=== PATIENT | male | born 1955 | race Caucasian/White ===

== ENCOUNTER → 2019-06-20 09:11 | Outpatient (CLI) | payer MEDICARE, OTHER, SELFPAY ==
--- NOTE | 2019-06-20 | DI.CT.S_ITS ---
PROCEDURE: CT UE LT WO CON INDICATIONS: Primary osteoarthritis, left shoulder TECHNIQUE: Noncontrast 1-1.5 mm thick sections acquired from the acromioclavicular joint to the inferior scapula, with coronal and sagittal reformatting. COMPARISON: [facility] [place], CR, XR SHOULDER 2+ VIEWS LEFT, 01/02/2019, 8:54. [facility], MR, MR SHOULDER LEFT WITH/WITHOUT CONTRAST, 11/18/2018, 10:25. FINDINGS: Image quality: Excellent. Bones: Comparative studies, again noted is severe glenohumeral joint osteoarthritis with significant joint space narrowing, extensive subchondral sclerosis and cyst formation and prominent inferior osteophyte formation. Moderate acromioclavicular joint osteoarthritic changes also seen. Nonspecific intraosseous cyst formation and greater tuberosity of humeral head is seen near rotator cuff tendon insertion. No suspicious intraosseous lesion. No fracture or dislocation. Soft tissues: There is no significant joint effusion. No gross full-thickness rotator cuff tendon rupture. No abnormal soft tissue calcification is seen. IMPRESSION: 1. Moderate to severe glenohumeral joint osteoarthritis and moderate acromioclavicular joint osteoarthritis. 2. No significant joint effusion. No gross full-thickness rotator cuff tendon rupture. Dictated by: Vladimir Man M.D. on 06/20/2019 at 12:06 Approved by: Vladimir Man M.D. on 06/20/2019 at 12:08
== END ==
PROVIDERS: PCP Family Medicine; Visit Provider Orthopaedic Surgery
DX: M19.012 Primary osteoarthritis, left shoulder (principal)
CPT/HCPCS: 73200

== ENCOUNTER 2019-08-13 09:33 | Inpatient (IN) | payer MEDICARE, OTHER, SELFPAY ==
[2019-07-30 08:39] VITALS: BMI 26.6
[2019-08-13] VITALS (15 sets, daily range): BP systolic 83–145; BP diastolic 53–91; PULSE 60–78; RESP 14–18; TEMP 35.9–36.6; O2SAT 91–98; BMI 25.7
[2019-08-13] MEDS: LACTATED RINGERS 1,000 ML 42 ML IV ×2 (10:00→14:06)
[2019-08-13] MEDS: CELECOXIB 200 MG CAPSULE PO (10:05)
[2019-08-13] MEDS: MELOXICAM 7.5 MG TABLET 15 MG PO (10:05)
[2019-08-13] MEDS: PREGABALIN 75 MG CAPSULE PO (10:06)
[2019-08-13] MEDS: ACETAMINOPHEN 325 MG TABLET 975 MG PO ×2 (10:06→20:52)
--- NOTE | 2019-08-13 11:37 | P.OP_ITS ---
Operative Date/Time/Diagnoses Date of procedure: 08/13/19 Time of procedure: 14:40 Pre-op diagnosis: Left shoulder osteoarthritis Post-op diagnosis: same Procedure & Clinicians Procedure: Left total shoulder replacement Same procedure as scheduled: Yes Indications: The patient has had progressively worsening left shoulder pain with radiographic changes consistent with arthritis. Non-operative management has failed and the patient has requested total shoulder replacement. The risks, benefits and alternatives to surgery were discussed with the patient prior to proceeding. Risks discussed included, but were not limited to, failure to relieve pain, stiffness, infection, nerve damage, deep venous thrombosis, pulmonary embolism, stroke, coma, heart attack, permanent paralysis and , as well as the potential need for eventual revision of the prosthetic. Surgeon: Angel Catalan Lining Inserter: Colleen Briones Click Yes if Unassisted: No Anesthesia Type: General, Peripheral nerve block and Local Operative Notes Findings: Severe osteoarthritis with significant posterior erosion of the glenoid with posterior subluxation of the humeral head. Closure Type: primary Specimen(s): none sent Prosthetic devices, grafts, tissues, transplants, or devices: Implants used in this procedure were manufactured by the [employer] and included an Altivate short stem total shoulder system with a size 14 stem, a neutral 50 x 20 mm humeral head with a neutral neck and a 50 mm all polyethylene E plus pegged glenoid. Applied: drain(s) and implant(s) Estimated Blood Loss (mL): 150 Blood products transfused: none Procedure in detail: The patient was seen in the pre-operative area, where the patient identified the left shoulder as the operative site and this was marked with my initials. The patient received pre-operative antibiotics, underwent an interscalene block, and was taken to the operating room and placed on the operative table in the supine position. After satisfactory anesthesia, a full ?time out? was performed. The patient was repositioned in the ?beach chair? position using a dedicated positioner. All pressure points were well padded, and the knees were slightly bent to prevent tension on the sciatic nerves. The left arm was prepared from the fingers to the base of the neck with ChloroPrep in the usual fashion and draped through sterile drapes. An approximately 15 cm incision was created, starting at the clavicle above the coracoid process and extended towards the deltoid insertion. The deltopectoral interval was used to access the shoulder. The cephalic vein was taken medially. A self retaining retractor was placed. The upper centimeter of the pectoralis major tendon was released. The ?three sisters? were identified and cauterized. The axillary nerve was palpated and protected throughout the case. The biceps was released from its groove and tenodesed over the top of the pectoralis major tendon. The subscapularis was released from the lesser tuberosity with a subscapularis peel and tagged for later repair. The shoulder was dislocated and a cutting guide was used for the proximal humeral osteotomy in 30 degrees of retroversion. A starter Reamer was used followed by the cylindrical reamers. This continued in larger sizes in till cortical bite was achieved. Sequential broaching was then performed until a line to line fit with the Reamer occurred. A proximal humeral protector was then placed. We then removed the self-retaining retractor and placed retractors to access the glenoid. The subscapularis was released with a ?360 degree release? with care being taken to protect the axillary nerve with the inferior portion of this procedure. The remnant of labrum and biceps stump were removed. The appropriate size reamer was chosen by the preoperative computer planning. The custom made glenoid drill guide was placed and the guide pin inserted. The glenoid was appropriately reamed. The guide for the peripheral holes was used and the center hole enlarged. The trial glenoid was placed with good stability. We then cemented the final implant into place after irrigating the peg holes and drying them with thrombin-soaked Gelfoam. We returned our attention to the humerus, a trial humeral head was applied and a trial reduction performed. Stability was checked with 50% posterior translation with spontaneous reduction, 45? external rotation with the subscapularis held in the repaired position and 70? of internal rotation in the ?scarecrow position?. This was felt to be satisfactory and the appropriate implants were opened. Five holes were drilled along the humeral osteotomy and #2 Ethibond sutures placed for eventual subscapularis repair. The humeral prosthetic was impacted into the humerus. The humeral head was applied when the stem was still slightly proud and impacted to both seat the head and fully seat the stem. The joint was relocated one final time. The joint was irrigated and the subscapularis repaired to the previously placed sutures using Ned-Tomas sutures. The top of the subscapularis was closed to the leading edge of the supraspinatus with a figure of 8 #2 Ethibond to close the rotator interval. A deep drain was placed and brought out supero-laterally. The deltopectoral interval was closed with interrupted 0 Vicryl. The subcutaneous layer was closed with 3-0 Vicryl, and the skin with a running 3-0 V-Lock suture and SteriStrips. An Aquacel Ag dressing was applied, the patient?s arm was placed in a sling, and the patient was taken to recovery having tolerated the procedure well. Complications: none Post-operative Condition: stable Disposition: PACU Plan for aftercare: The patient will be maintained on a standard total shoulder replacement protocol with passive range of motion limited to 90 degrees forward flexion, 0 degrees external rotation at the side, 0 degrees abduction and internal rotation to the body. The patient will receive aspirin and sequential compression devices for DVT prophylaxis. The patient will be discharged home when safe for the home environment, likely tomorrow.
--- NOTE | 2019-08-13 11:37 | PM.PREOP ---
Pre-operative Note Interval Note History & Physical reviewed/Exam performed by Physician: Yes Changes to H&P: No
[2019-08-13] MEDS: MIDAZOLAM 2 MG/2 ML VIAL IV (12:00)
[2019-08-13] MEDS: fentaNYL 100 MCG/2 ML INJ 50 MCG IV (12:05)
--- NOTE | 2019-08-13 12:13 | SUR.PREOP ---
Block start time [1200] . Monitoring initiated and maintained throughout procedure. Oxygen and medications given per anesthesiologist instructions. Patient remained stable throughout procedure, no adverse reactions noted. Block end time [1210].
[2019-08-13] MEDS: CEFAZOLIN 2 GM/100 ML FROZ.PIGGY IV (12:26)
[2019-08-13] MEDS: BUPIVACAINE 0.5% W/ EPI (PF) 30 ML VIAL INJ (13:08)
[2019-08-13] MEDS: TRANEXAMIC ACID 1,000 MG VIAL 1000 MG INJ ×2 (13:09→14:19)
--- NOTE | 2019-08-13 13:16 | SUR.OPER ---
Beach chair with Schlein shoulder positioner. Lower body on padded OR bed. Head in foam padded head cradle, secured with straps. Non-operative arm secured <90 degrees abduction. Pillow under knees. Safety belt at thigh. Cloth tape over blanket over lower legs.
[2019-08-13] MEDS: THROMBIN (RECOMBINANT) 5,000 UNIT VIAL 5000 UNIT TOP (13:58)
--- NOTE | 2019-08-13 15:03 | DI.RAD.S_ITS ---
PROCEDURE: XR SHOULDER LT 1V INDICATIONS: post op total shoulder TECHNIQUE: Single views of the shoulder were acquired. COMPARISON: None. FINDINGS: Bones: No fractures or dislocations. No suspicious bony lesions. Visualized ribs appear intact. Expected postoperative alignment of left shoulder arthroplasty hardware. Soft tissues: Overlying postsurgical soft tissue changes. Surgical drain.. IMPRESSION: Expected postoperative appearance Dictated by: Eleuterio Adrian M.D. on 08/13/2019 at 15:47 Approved by: Eleuterio Adrian M.D. on 08/13/2019 at 15:48
--- NOTE | 2019-08-13 19:48 | PC.NURSE ---
Addendum entered by Sapna Goodson R.N. 08/13/19 21:14: Patient slept for 2 hours, VS remain stable, RA oxygen 96% Awoke to voice, oriented x 3 and to situation. IS teaching given, getting to 1600. Denies pain to LUE or hand, can move index & 3rd finger just slightly, still reports numbness to hand, arm & shoulder. Drsg CDI. Hemovac with 110 ml sero-sang drainage. Arm in protective sling. Holden ambulated to BR to void, needing only SBA. Back to bed, 1/2 sandwich & snacks given per his request, needing some set-up assist. Reports his dominant hand is his left. Using call button appropriately, instructed to call nurse if he starts feeling any pain- he agrees to this plan. Original Note: Post-op note: Holden brought from PACU at 1615, drowsy, oriented to situation. Denies pain to LUE or shoulder, reports shoulder, arm, hand and fingers are numb. Could slightly wiggle index finger upon last assessment, hand & arm are warm to the touch, radial pulse is strong, good cap refill. LUE in protective sling. Drsg and hemovac site are CDI, small amt of sero-sang in disc, disc compressed. IV to right hand infusing with no difficulty. Patient denies nausea & tolerating regular diet. Patient able to stand at bedside, denied dizziness, voiding 650 ml clear mohamud urine via urinal. Back to bed. Oriented to room, bed and nurse call button controls, at bedside. Fall precautions in place, patient instructed to call staff for any needs/concerns.
[2019-08-13] MEDS: ASPIRIN EC 81 MG TABLET PO (20:52)
[2019-08-13] MEDS: LACTATED RINGERS 1,000 ML 125 ML IV (20:53)
--- NOTE | 2019-08-13 23:52 | PC.NURSE ---
Addendum entered by Taty Looney R.N. 08/14/19 05:43: Slept most of night. States still some numbness in left forearm and tingling in fingers/hand but moving better. Currently pain is 2/10 but declines pain meds at this time. Original Note: Patient is alert and oriented. Breath sounds CTA with RA sat of 95%. HRR. Denies nausea. BT present and states he has passed flatus. Denies dysuria, frequency or urgency and is voiding per urinal. Able to move self in bed. Left arm is in sling. Aquacel dressing is CDI. Hemovac is compressed and intact. Numbness throughout left UE but is able to move fingers and slightly lift arm. Denies pain. Good radial pulse/cap refill. Wearing bilateral calf SCD's. Noted skin on feet very dry. Fall risk score is low.
[2019-08-14] MEDS: LACTATED RINGERS 1,000 ML 125 ML IV (01:08)
[2019-08-14 05:30] VITALS: BP 104/65; PULSE 68; RESP 18; TEMP 36.9; O2SAT 95
[2019-08-14 05:53] LABS: Hematocrit 35.6 % (41-53); Hemoglobin 12.3 g/dL (13.5-17.5); Mean Corpuscular HGB Conc 34.5 % (30-36); Mean Corpuscular Volume 89.8 fL (80-100); Platelet Count 185 X10^3/uL (150-400); Red Blood Cell Count 3.96 X10^6/uL (4.5-5.9); Red Cell Distribution Width 12.5 % (11.6-14.8); White Blood Cell Count 10.2 X10^3/uL (4.5-11.0)
[2019-08-14 07:40] VITALS: BP 117/73; PULSE 67; RESP 16; TEMP 37; O2SAT 97
--- NOTE | 2019-08-14 07:51 | PM.DS.1 ---
History of Present Illness History of Present Illness Date Patient Seen: 08/14/19 Time Patient Seen: 07:51 Chief complaint: 90096 Left Total Shoulder Arthroplasty Narrative: History and physical is contained in the chart in a previously completed note. Please refer to that note for this information. Discharge Providers Provider Date of admission: 08/13/19 09:33 Discharge Date: 08/14/19 Primary care physician: Ian Benjamin MD Consults: 08/13/19 17:14 Consult to Discharge Planning Routine Comment: Consult to Physical Therapy Evaluate & Treat Comment: Pendulums, PROM 90 FF, 0 ABD, 0 ER, IR to body Physician Instructions: Evaluate and Treat Discharge provider: Angel Catalan MD Summary Hospital Course Discharge Diagnosis: 1. Left shoulder osteoarthritis 2. Mild post hemorrhagic anemia Hospital Course: The patient was admitted to the hospital and taken directly to the operating room on August 13, 2019. Underwent a left total shoulder replacement without complication. On postoperative day 1 he was neurovascularly intact and had reasonable pain control. He was independent with ambulation and ready to go home. Status at Discharge Cognitive/behavioral status at discharge: oriented Functional status at discharge: independent ambulation Overall status at discharge: patient is progressing back to baseline Time Spent with Patient Time spent: Less than 30 minutes Exam Vital Signs (past 8 hours): - 08/14/19 05:30 Temperature 98.4 F Pulse Rate 68 Respiratory Rate 18 Blood Pressure 104/65 Pulse Oximetry 95 Oxygen Delivery Method Room Air Oxygen Flow Rate 0 Narrative Exam Narrative: The left shoulder wound is dressed with no drainage on the bandage. Light touch is intact in the radial, ulnar, median, muscular cutaneous and axillary nerve distribution. He can extend his thumb, abduct his thumb, abduct his fingers and can fire his biceps and deltoid. Objective Labs Result Diagrams: 08/14/19 05:35 Labs: Laboratory Results - last 24 hr 08/14/19 05:35 WBC 10.2 RBC 3.96 L Hgb 12.3 L Hct 35.6 L MCV 89.8 MCH 31.0 MCHC 34.5 RDW 12.5 Plt Count 185 Discharge Plan Discharge Plan Patient Disposition: Home Discharge orders & Medications Prescriptions: New acetaminophen 325 mg Tablet 975 mg PO TID 30 Days Qty: 270 RF: 0 aspirin 81 mg Tablet,Delayed Release (Dr/Ec) 81 mg PO BID 14 Days Qty: 28 RF: 0 oxycodone 5 mg Tablet 5 mg PO Q4HR Qty: 40 RF: 0 hydroxyzine pamoate 25 mg Capsule 25 mg PO Q4HR PRN (Reason: Spasms) Qty: 40 RF: 0 Continued IBUPROFEN (Ibuprofen) 400 - 600 mg PO PRN PRN (Reason: Pain) Qty: 0 RF: 0 EPINEPHRINE (#EPI EZ PEN) 1 mg IM PRN PRN (Reason: Allergic Reaction) RF: 0 Follow up/Referrals: Angel Catalan MD [Physician] - 2 Weeks Ian Benjamin MD [Primary Care Provider] - Discharge Health Status Multidrug resistant organism: No MDRO Diet/Activity/Treatments Diet: Diet as Tolerated and Regular Activity: You may use your left hand in front of your body below shoulder level. Cold/Heat Therapy: Apply ice to the left shoulder for 15 minutes of every hour as needed for pain relief. Other treatments: Remain in your sling except for pendulum exercises and showering until instructed that you may remove it by physical therapy. Skin/Wound/Dressing Care Report to your healthcare provider any signs of infection, such as:: chills, fever, night sweats, increased pain, unusual drainage and unusual redness Dressing: Leave the dressing intact until your follow-up appointment. You may shower with the dressing in place. If the central strip of the dressing becomes saturated with either water or blood please contact the office. Visit Report/Discharge Packet Instructions: DI for Shoulder Replacement Stand Alone Forms: Surgery Discharge Visit Report Forms: Patient Portal/API, Stroke Signs & Symptoms Discharge Data Primary Care Provider: Ian Benjamin
[2019-08-14] MEDS: ACETAMINOPHEN 325 MG TABLET 975 MG PO ×2 (09:15→11:15)
[2019-08-14] MEDS: ASPIRIN EC 81 MG TABLET PO (09:15)
[2019-08-14] MEDS: DOCUSATE 100 MG CAPSULE PO (09:16)
--- NOTE | 2019-08-14 09:47 | PT.IIE ---
Current Diagnoses Primary osteoarthritis, right shoulder (08/13/19) Surgery Performed Operation Date: 08/13/19 12:45 Actual Procedures p Total Shoulder Arthroplasty(Left) - Angel Catalan MD Surgical History (Last Updated 07/30/19 @ 09:04 by Denise Apple, RN) History of carpal tunnel repair (02/08/93) History of excision of pilonidal cyst (Acute ~1973) History of vasectomy (Acute) Medical History (Last Updated 07/30/19 @ 09:06 by Denise Apple RN) Hearing loss (Acute) HLD (hyperlipidemia) (Acute) Physical Therapy Inpatient Evaluation/Re-Eval M1 PT/OT-IP Prior Functional Status Start: 08/14/19 08:36 Freq: NEEDED Status: Active Protocol: Document 08/14/19 10:16 AW (Rec: 08/14/19 10:41 AW [email or web address]) Medical Review Prior Functional Status Medical History Reviewed Yes Diet/Fluid Consistency Regular Communication WNL Mobility and Gait Independent without limit and without assistive device Activities of Daily Living and IADL's Independent, though he does admit needing occasional help with upper body dressing in the last few weeks due to increasing pain Prior Functional Level (Other details) Overhead activity/lifting was limited due to pain. Social History Household Members spouse Living Arrangements House Number of Floors (Floors) Two Floors Number of Stairs To Enter/Railing? 3 MARIN without railing. 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 He lives with his who will be available to assist as needed. M2 PT-IP Current Condition Start: 08/14/19 08:36 Freq: NEEDED Status: Active Protocol: Document 08/14/19 10:16 AW (Rec: 08/14/19 10:41 AW [email or web address]) Physical Therapy Current Condition Current Condition Evaluation Date 08/14/19 Treatment Diagnosis L TSA, decreased independence with ADL's Onset Date 08/13/19 Precautions Shoulder Precautions Sling,PROM,Internal Rotation to Body,No External Rotation, No Abduction,Forward Flexion to 90 degrees,Pendulums Brace Sling with all mobility Weight Bearing Status Weight Bearing Status Full Weight Bearing M3 PT-IP Subjective Start: 08/14/19 08:36 Freq: NEEDED Status: Active Protocol: Document 08/14/19 10:16 AW (Rec: 08/14/19 10:41 AW [email or web address]) Subjective Physical Therapy Visit Type Type Initial Evaluation Visit Start Time 09:16 Visit Stop Time 09:47 Total Visit Minutes 31 Notes Pt seen with spouse, Ileana, who participated in caregiver training. Number of PHOTO MANAGER Visits 0 Physical Therapy Visit Comments Patient Comments Pt is eager to work with therapy Patient Goals Pt hopes to be on the [employer] [email or web address] back to [place] today Therapy Pain Assessment Pain When Pain Assessed During Mobility Pain Present Pain Present Pain Reported Location left UE Intensity 3 Scale Used 3/10 at rest; unchanged with mobility Pain Management Techniques Apply Cold,Re-positioning, Timing of Activity with Medications M4 PT-IP Mobility and Gait Start: 08/14/19 08:36 Freq: NEEDED Status: Active Protocol: Document 08/14/19 10:16 AW (Rec: 08/14/19 10:41 AW [email or web address]) PT-Bed Mobility Assessment Supine to Sit Supine to Sit Independent Scooting Scooting to Edge of Bed Independent PT-Transfer Assessment Sit to and From Stand Sit to and from Stand Independent Equipment Transfer Assistive Device Gait Belt Orthotic/Prosthetic Devices or Brace: Yes Transfers Transfer Destination Chair Transfer Technique pt ambulated without assistive device Transfer Ability Level of Assist Independent Comments Mobility Comments Pt performed all bed mobility and transfers independently with good attention to protecting his shoulder Gait Assessment Gait Gait Assistance Required: Standby Assistance Distance (Feet) 250 Able to Maintain Weight Bearing Status Yes During Gait Assistive Devices Assistive Device Gait Belt Orthotic/Prosthetic Devices or Brace: Yes Gait Deviations General Gait Pattern Within Normal Limits Factors Limiting Gait Function Factors Limiting Gait Function Pain Comments Gait Comments Pt ambulated without assistive device SBA due to reported slight grogginess. He was able to change gait speed, perform pivot turns, navigate obstacles, nod and turn his head with no path deviation or loss of balance. Stair Climbing Assessment Evaluation Level of Assist On Stairs Standby Assistance Devices Stair Climbing Assistive Devices Left Railing Technique/Endurance Stair Climbing Direction Ascend and Descend Stair Climbing Technique Step Over Step Number of Steps Climbed 3 Query Text: Stair Climbing Set # Repetitions (reps) 5 Comments Stair Climbing Comments Pt climbed stairs with and without left railing SBA, no need for cues, and with good safety awareness. PT-Balance Assessment Sitting Balance and Reactions Static Sitting Balance Ability Normal Dynamic Sitting Balance Ability Normal Standing Balance and Reactions Static Standing Balance Ability Normal Dynamic Standing Balance Ability Good Device Used none M5 PT-IP Objective Assessments Start: 08/14/19 08:36 Freq: NEEDED Status: Active Protocol: Document 08/14/19 10:16 AW (Rec: 08/14/19 10:41 AW [email or web address]) Orientation Orientation/Cognition Level of Alertness Alert Orientation Name,Day of Week,Place, Situation Language Function Ability No Deficits Noted Safety Awareness Understands Safety Issues Memory Description No Deficits Noted Gross Range of Motion Upper Extremity ROM Assessment Left Impaired Lower Extremity ROM Assessment Within Functional Limits Strength Upper Extremity Strength Assessment Left Impaired Lower Extremity Strength Assessment Within Functional Limits Coordination Assessment Gross Coordination Gross Coordination WNL Sensation Assessment Sensation Gross Sensation WNL M6 PT-IP Treatment Start: 08/14/19 08:36 Freq: NEEDED Status: Active Protocol: Document 08/14/19 10:16 AW (Rec: 08/14/19 10:41 AW [email or web address]) Physical Therapy Treatment Exercises Exercises Shoulder Pendulums,Elbow Flexion/Extension,Wrist ROM, Hand ROM Education Education Provided Precautions,Weight Bearing Status,Post-Op Packet,Safety Brace Education Donning,Wimer,Patient, Caregiver Other Treatments Other Treatment Performed PT educated pt and spouse on proper fitting of sling with mirror for visual feedback. Pt 's spouse able to demonstrate donning and doffing sling with no verbal cues after demonstration. Reviewed ADL's, shoulder PROM, and ROM for distal arm. Provided handout with information on same. M7 PT-IP Assessment and Plan Start: 08/14/19 08:36 Freq: NEEDED Status: Active Protocol: Document 08/14/19 10:16 AW (Rec: 08/14/19 10:41 AW [email or web address]) PT Summary Assessment and Plan Potential Rehabilitation Potential Excellent Status of Condition at Evaluation Stable Summary Impairments Pain,ROM,Strength Assessment Summary Holden is a 63 yo campo who was seen for PT evaluation on POD1 following R TSA. He lives with his who is available and able to provide assistance as needed at home. Prior to surgery, pt was indepenent in all regards. On evaluation, he was independent for bed mobility and transfers. He required SBA for ambulation and stairs due to reported mild grogginess. Dynamic balance was good. Pt and spouse demonstrate good understanding of and attention to post-op precautions. They were able to don and doff the sling safely and without verbal cues. Holden is safe to discharge home with spouse assist and outpatient PT once medically cleared. He requires no further acute PT. 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
--- NOTE | 2019-08-14 11:48 | PC.NURSE ---
Discharge: IV dc'd intact. Hemovac dc'd earlier with good hemostasis, covered with tegaderm/gauze dressing. Strong radial pulses and cap refill <2 sec. Reported still a bit of residual numbness in L forearm, but CMS WNL otherwise. Pain well-controlled, so far, with Tylenol. Sent with scripts for Tylenol, Oxycodone, Docusate and Vistaril. r and d lab technician Marty reviewed discharge instructions/packet with patient and his and they both verbalized understanding and denied further questions. All personal belongings sent with patient at discharge. Wheeled out to private vehicle by nursing staff.
--- NOTE | 2019-08-14 11:53 | CM.DANOTE ---
DCP/assessment: Reviewed chart. Patient is 63yr old male admitted [facility] for left TSA performed on 08-13-[address] Catalan. PCP is Dr. Benjamin. [facility] 1[facility]Medic[facility] Met with patient explained CM/SW role. Patient sitting in recliner, preparing to discharge home today. Spouse at bedside. Patient reports that prior to surgery he was completely I in all ADL's. Patient does not anticipate any d/c planning needs. Priority boarding pass completed. Patient hopes to be on 12:35pm sailing. P: Home today. 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 No History Provided By Patient,Significant Other Prior Living Arrangements House Household Members spouse Type of transporation used prior to Drives own vehicle admit Independent with ADL's Yes Is patient alert and oriented? Yes Caregiver for Another No Barriers to Discharge No Discharge Plan Home Transportation Arrangement Family to provide transport. Referrals Initiated None needed Whiteboard Updated in Patient Room with Yes name and ext. 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 Review Status In Process Next Review Type Continued Stay Review Pre-Anesthesia Assessment Start: 07/30/19 08:39 Freq: Status: Complete Protocol: Document 07/30/19 08:39 CAB (Rec: 07/30/19 09:18 CAB [id number]) Pre-Anesthesia Assessment Patient Information Reviewed Via Phone Assessment Assessment Completed With Patient Diagnostic Results BMP/CMP,CBC,EKG,Urinalysis Comment Outside labs/EKG scanned to record Primary Care Provider Ian Benjamin Medical Clearance Received Yes Seen Specialist in Last 12 Months Yes Specialist Seen Orthopedist Comment PCP pre-op clearance 07/04/19 scanned to record 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 Operating Required No Height 175.26 cm Weight 81.647 kg Body Mass Index (BMI) 26.6 Hearing Ability Hard of Hearing,Use of Hearing Aid Visual Assist None Dentition Type Teeth, Natural Present Barriers to Learning None Other Aids No Hx Anesthesia Reactions No Hx Family Anesthesia Reaction No Hx Malignant Hyperthermia No Hx Blood Transfusions No Anesthesia Review Requested No alcohol intake current Alcohol Intake Frequency Other: Occasional Smoking Status Former smoker how long ago did patient quit smoking Quit mid 70's Substance Use Type does not use Pain Present Pain Reported Musculoskeletal Symptoms Joint Pain,Limited Range of Motion History of Falling (Recent or History of No ) Patient is completely paralyzed or No completely immobile Mental Status Oriented to own ability Is patient on oxygen? No Does patient have CONCEPCION/SOB No Hx Sleep Apnea No Currently Taking a Beta Jaspreet No Can You Climb a Flight of Stairs Without Yes SOB Hx Chest Pain No Hx SOB No Hx Syncope or Dizziness No Anti-Coagulant Therapy No Has a Battery Tester And Repairer No Cardiac Testing No Hx Pacemaker/ICD No Pacemaker Rep Required? No Cardiac Clearance Received Not Applicable Diet Type At Home Regular dysphagia No Urinary Catheter Present No Hx Urinary Self Catheterization No Diabetes No Hx Drug Resistant Organism No Presence of External or Internal Medical No Devices Have you traveled outside the [facility] in the last 30 days? Marital Status Lives With spouse Prior Living Arrangements House Number of Floors (Floors) Two Floors Support System Child/Children,Spouse Does the Patient Have Assistance After Yes Surgery Patient Discharge Plan Description Return Home Comment Pt advised overnight length of stay per surgeon Feels Safe in Current Environment Yes Been Physically Hurt or Threatened By a No Person in Current Environment Do you have thoughts of harming yourself None or others? Are you currently considering suicide? No Do you have a plan to hurt yourself or No Plan others? Do You Have Any Spiritual Beliefs That No May Affect Your HC Choices? Do You Have Any Cultural Practices That No May Affect Your HC Choices? Who Can We Speak to About Patient's Care Family, friends Identifying Code for Release of Patient Declines to issue Information Health Care Proxy/Next of Kin Justine () Harshil (son) Health Care Proxy Phone Number Justine: [phone] [facility]: Emergency Contact Name Justine () Harshil (son) Emergency Contact Phone Number Justine: [phone] [facility]: [phone] Advance Directives? No Power of Conveyor System Operator No PAC Instructions Durable medical equipment, Medications to take/avoid, Nasal antibiotic,No ETOH/ petroleum product on skin DOS, NPO,Pre-surgical wash,Sturdy shoes/comfortable clothes,Do not bring valuables and remove jewelry
== END 2019-08-14 12:01 | disposition home or self-care (01) | DRG 483 ==
PROVIDERS: Admitting Provider Orthopaedic Surgery; PCP Family Medicine; Visit Provider Orthopaedic Surgery
PROC: 0RRK0JZ Replacement of Left Shoulder Joint with Synthetic Substitute, Open Approach (ICD-10-PCS; CPT 23472; principal; 2019-08-13 12:45)
DX: M19.012 Primary osteoarthritis, left shoulder (principal); I10 Essential (primary) hypertension
CPT/HCPCS: 36415; 64450; 73020; 85027; 97161; 97530; C1776; J0690; J1100; J2250; J2405; J2704; J3010